=== PATIENT | female | born 1995 | race Caucasian/White ===

== ENCOUNTER → 2021-09-04 | Outpatient (CLI) | payer OTHER | END | disposition home or self-care (01) | LOC: LABWHC1 16:11 | PROVIDERS: ATTEND Obstetrics & Gynecology | DX: N94.89 Other specified conditions associated with female genital organs and menstrual cycle (principal) | CPT/HCPCS: 36415; 84702 ==

== ENCOUNTER → 2022-12-23 | Outpatient (CLI) | payer OTHER ==
--- NOTE | 2022-12-23 15:45 | USB ---
Reason for Exam: Clinical finding. Technique: Method: Whole Breast Handheld. Findings: The whole breast of both breasts, the axilla of both breasts and the retroareolar of both breasts were scanned. No solid or cystic masses are identified.. Further management by the patient's ordering physician. Overall Assessment: Negative, BI-RAD 1 Management: Screening Mammogram of both breasts at age 39. A clinical breast exam by your physician is recommended on an annual basis and results should be correlated with mammographic findings. This exam should not preclude additional follow-up of suspicious palpable abnormalities. Results were given to the patient verbally at the time of exam. Electronically signed and approved by: Franky Vaughn M.D. Radiologis
== END | disposition home or self-care (01) ==
LOC: RADUSWWP 15:01
PROVIDERS: ATTEND Obstetrics & Gynecology
DX: N64.4 Mastodynia (principal)

== ENCOUNTER → 2023-11-02 | Outpatient (CLI) | payer OTHER ==
--- NOTE | 2023-11-02 12:19 | CT ---
EXAMINATION TYPE: CT brain wo con DATE OF EXAM: 11/02/2023 COMPARISON: none HISTORY: headaches, dizziness CT DLP: [address] of the brain was performed. The ventricles, basal cisterns and sulci overlying the cerebral convexities demonstrate a normal appe arance. There is no evidence for intracranial hemorrhage or sulcal effacement. No mass effects are seen. Osseous calvarium is intact. If symptoms persist consider MRI as clinically warranted. IMPRESSION: 1. No acute intracranial process is seen at this time.
== END | disposition home or self-care (01) ==
LOC: RADCTMAIN 11:44
PROVIDERS: ATTEND Internal Medicine
DX: R42 Dizziness and giddiness (principal); R51.9 Headache, unspecified
CPT/HCPCS: 70450